=== PATIENT | female | born 1965 | race Caucasian/White ===

== ENCOUNTER 2018-07-27 18:40 | Emergency (ER) | payer OTHER ==
[~2018-07-27] VITALS: Ht 162.6 cm; Wt 70.1 kg
[2018-07-27 18:49] VITALS: Ht 162.6 cm; Wt 70.1 kg
[2018-07-27 19:31] LABS: PLATELET COUNT 320 x10^3mcL (130-400); RED CELL DISTRIBUTION WIDTH 12.4 % (11.5-14.5)
[2018-07-27 19:45] LABS: BASOPHIL % 0.4 % (0-2); PLATELET COUNT 319 x10^3mcL (130-400); RED CELL DISTRIBUTION WIDTH 12.5 % (11.5-14.5)
[2018-07-27 19:50] LABS: CALCIUM 8.7 mg/dL (8.5-10.1); CARBON DIOXIDE 26.8 mmol/L (21-32); CHLORIDE SERUM 104 mmol/L (98-107); GFR1 > 60 mL/min; GLUCOSE SERUM 187 mg/dL (74-106); POTASSIUM SERUM 3.4 mmol/L (3.5-5.1); SODIUM SERUM 142 mmol/L (136-145)
[2018-07-27 19:55] LABS: ALBUMIN 3.6 g/dL (3.4-5.0); ALKALINE PHOSPHATASE 107 U/L (46-116); ALT/SGPT 49 U/L (14-59); AST/SGOT 20 U/L (15-37); BILIRUBIN TOTAL 0.24 mg/dL (0.20-1.00); TOTAL PROTEIN, SERUM 6.2 g/dL (6.4-8.2)
[2018-07-27 20:07] LABS: MONOCYTE 3 % (0-7); SEGMENTED NEUTROPHILS 60 % (37-75)
[2018-07-27 20:10] LABS: rbc morphology (normal/abnorm) NORMAL (NORMAL)
[2018-07-27 20:11] LABS: PLATELET MORPHOLOGY FEW LARGE PLATELET
[2018-07-27 22:53] VITALS: BP 83/64
== END 2018-07-27 22:53 | disposition home or self-care (01) ==
LOC: ED 18:40
PROVIDERS: Emergency Medicine
DX: T85.49XA Other mechanical complication of breast prosthesis and implant, initial encounter (principal); N64.89 Other specified disorders of breast; I10 Essential (primary) hypertension; E78.00 Pure hypercholesterolemia, unspecified
CPT/HCPCS: 36415; J2001; Q0092